=== PATIENT | female | born 1970 | race Caucasian/White ===

== ENCOUNTER 2016-10-24 10:06 | Emergency (ER) | payer SELFPAY ==
[~2016-10-24] VITALS: Ht 167.6 cm; Wt 69.0 kg
[2016-10-24 10:14] VITALS: BP 133/83; PULSE 98; RESP 16; TEMP 98.2; O2SAT 100
--- NOTE | 2016-10-24 10:23 | PD ---
HPI Chief Complaint: Cold / Flu Symptoms Time Seen by Provider: 10:19 Travel History International Travel<30 days: No Contact w/Intl Traveler<30days: No Traveled to known affect area: No History of Present Illness HPI Healthy 46-year-old smoker here with complaint of flulike symptoms. 3 days of body aches, subjective fevers and chills, nasal congestion with postnasal drip, sore throat and dry nonproductive cough. No recent travel or sick contacts. Patient states that she had to stay home from work the last 2 days prompting ER visit for work note. She has been using Motrin at home with improvement of her symptoms and states that her sinuses are now draining and her symptoms are improving. [facility] Past Medical History Diminished Hearing: No Immunizations Current: Yes Tubal Ligation: Yes Past Surgical History Other Surgery: Yes (SKIN GRAFT RIGHT LATERAL HAND) Social History Alcohol Use: Yes (SOCIALLY) Tobacco Use: Yes (1/2PPD) Substance Use: No Allergies-Medications (Allergen,Severity, Reaction): Coded Allergies: No Known Allergies (Unverified , 10/24/16) Reported Meds & Prescriptions Reported Meds & Active Scripts Active No Active Prescriptions or Reported Medications Review of Systems Except as stated in HPI: all other systems reviewed are Neg Physical Exam Narrative GENERAL: Well-appearing female in no acute distress SKIN: Focused skin assessment warm/dry. HEAD: Normocephalic. EYES: No scleral icterus. No injection or drainage. ENT: TMs clear bilaterally. Posterior pharynx is clear without tonsillar erythema, exudate or palatal petechiae. Minimal nasal mucosal injection. No nasal bleeding or discharge. Mucous membranes pink and moist. NECK: Supple without lymphadenopathy CARDIOVASCULAR: Regular rate and rhythm. RESPIRATORY: No accessory muscle use. Clear to auscultation. Breath sounds equal bilaterally. MUSCULOSKELETAL: Normal gait NEUROLOGICAL: Awake and alert. Normal speech. PSYCHIATRIC: Appropriate mood and affect; insight and judgment normal. Data Data Last Documented VS Vital Signs Date Time Temp Pulse Resp B/P Pulse Ox O2 Delivery O2 Flow Rate FiO2 10/24/16 10:14 98.2 98 16 133/83 100 MDM Medical Decision Making Medical Screen Exam Complete: Yes Emergency Medical Condition: Yes Medical Record Reviewed: Yes Differential Diagnosis 46-year-old female here with complaint of 3 days of flulike symptoms. Differential includes viral syndrome, influenza, sinusitis, pharyngitis, bronchitis or pneumonia. Narrative Course Overall well-appearing, symptoms are gradually improving with time. Suspect viral URI. Counseled on conservative management. Diagnosis Primary Impression: Upper respiratory infection Qualified Code: J06.9 - Viral upper respiratory tract infection Referrals: Primary Care Physician as needed Departure Forms: Tests/Procedures, Work Release Enter return to work date: October 25, 2016 Additional Instructions: Tylenol, Motrin, Aleve as needed for body aches and/or fever. Med/Other Pt SpecificInfo: No Change to Meds Scripts No Active Prescriptions or Reported Meds Disposition: 01 DISCHARGE HOME Condition: Stable Pam Duque MD October 24, 2016 10:23
== END 2016-10-24 10:33 | disposition home or self-care (01) ==
LOC: PHEFT 10:06
DX: J06.9 Acute upper respiratory infection, unspecified (principal); F17.210 Nicotine dependence, cigarettes, uncomplicated
CPT/HCPCS: 99283